=== PATIENT | male | born 1965 | race African-American/Black ===

== ENCOUNTER 2024-07-31 16:10 | Emergency (ER) | payer SELFPAY ==
[~2024-07-31 16:10] MED LIST: Iopamidol 370 76% 100 ML VIAL ONE
[2024-07-31] MEDS ORDERED: Ondansetron PF 4 MG/2 ML Vial ONE (17:05)
[2024-07-31] MEDS ORDERED: Lactated Ringer's 1,000 ML ONE ×2 (17:06→20:55)
[2024-07-31 17:41] LABS: Band 6 % (5-11); Hematocrit 45.7 % (42.0-52.0); Hemoglobin 14.2 g/dL (14.0-18.0); Hypochromia SLIGHT = 6-15 cells (100X) (0-5/hpf); Lymphocytes 4 % (21-51); MDiff Complete? YES; Mean Corpuscular HGB CONC 31.1 g/dL (32.0-36.0); Mean Corpuscular Hemoglobin 26.6 pg (27.0-31.0); Mean Corpuscular Volume 85.7 fl (78.0-98.0); Mean Platelet Volume 9.4 fL (7.4-10.4); Monocytes 4 % (0-10); Neutrophil 84 % (42-75); Platelet Adequacy Comment Appears Adequate; Platelet Count 214 10x3/uL (130-400); RBC Distribution Width 12.8 % (11.5-14.5); Red Blood Cell (RBC) Count 5.33 mill/uL (4.70-6.10); White Blood Cell (WBC) Count 14.4 10x3/uL (4.8-10.8)
[2024-07-31 17:42] LABS: ALT (SGPT) 17 U/L (8-55); AST (SGOT) 23 U/L (5-34); Albumin 4.2 g/dL (3.5-5.0); Alkaline Phosphatase 88 U/L (40-110); Anion Gap 13 mmol/L (10-20); BUN (Urea Nitrogen) 11 mg/dL (8.4-25.7); Bilirubin, Total 0.6 mg/dL (0.2-1.2); Calc. Creatinine Clearance 0 mL/min (70-130); Calcium 9.8 mg/dL (7.8-10.44); Carbon Dioxide 24 mmol/L (22-29); Chloride 106 mmol/L (98-107); Estimated GFR 84; Globulin 3.7 g/dL (2.4-3.5); Glucose 133 mg/dL (70-105); Lipase 14 U/L (8-78); Potassium 3.5 mmol/L (3.5-5.1); Protein, Total 7.9 g/dL (6.0-8.3); Sodium 139 mmol/L (136-145)
== END 2024-07-31 22:23 | disposition short-term general hospital (02) ==
LOC: MADERS 16:10
DX: K56.600 Partial intestinal obstruction, unspecified as to cause (principal)
CPT/HCPCS: 36415; 43753; 71045; 74177; 80053; 83605; 83690; 85025; 93005; 96361; 96374; J2405; J7120; Q9967